=== PATIENT | male | born 1955 | race African-American/Black ===

== ENCOUNTER → 2018-01-01 | Outpatient (CLI) | payer OTHER ==
--- NOTE | 2018-01-01 13:29 | RADIOLOGY REPORT (SQ) ---
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 RADIONUCLIDE AND DOSE: 21.7 millicuries Tc99m MDP. The route of agent administration: Intravenous. ADDITIONAL DRUGS AND DOSES: None. TECHNIQUE: Routine delayed images at 3 hour post radionuclide injection acquired of the bony skeleto n including anterior and posterior whole-body projections and additional focused images as needed. LIMITATIONS: None. FINDINGS: BONES: Subtle focal increased uptake in the inferior sternum to left of midline probably d egenerative costochondral junction uptake. Subtle focal uptake right 9th posterior rib. Symmetric u ptake in multiple joints consistent with degenerative change. KIDNEYS: Symmetric excretion without obstruction. OTHER: No other significant finding. IMPRESSION: Subtle sternal and right rib lesion probably degenerative and posttraumatic, respectivel y. No definite metastasis. COMMENT: Quality measure 147: No available prior imaging studies for comparison TECHNICAL DOCUMENTATION: JOB ID: [id number] [employer]- All Rights Reserved Reading location - IP/workstation name: [email or web address]
== END ==
LOC: RAD 08:18
PROVIDERS: ATTEND Radiology Radiation Oncology
DX: C61 Malignant neoplasm of prostate (principal); C77.5 Secondary and unspecified malignant neoplasm of intrapelvic lymph nodes
CPT/HCPCS: 78306; A9561; Q9969

== ENCOUNTER 2020-02-24 08:01 | Day surgery (SDC) | payer MEDICARE, OTHER ==
[~2020-02-24 08:01] MED LIST: FENTANYL CITRATE INJ/PF 100 MCG/2 ML AMPUL ONE; MIDAZOLAM 2 MG/2 ML INJ ONE; ONDANSETRON HCL INJ/PF 4 MG/2 ML SDV ONE; PROPOFOL INJ 200 MG/20 ML VIAL IV ONE
[2020-02-24] MEDS ORDERED: LIDOCAINE 2%/EPINEPHRINE INJ 1.7 ML CARTRIDGE ONE (08:42)
[2020-02-24] MEDS ORDERED: OXYMETAZOLINE HCL 0.05% NASAL SPRAY 15 ML BOTTLE ONE (08:42)
[2020-02-24] MEDS ORDERED: COCAINE HCL 4% TOPICAL SOLN 4 ML ONE (08:42)
[2020-02-24] MEDS ORDERED: LIDOCAINE 2% INJ-PF (20 MG/ML) 10 ML AMPUL ONE (08:48)
--- NOTE | 2020-02-24 10:01 | Operative Report ---
Operative Report-[facility] Operative Report: Date: 24 February 2020 History: 65-year-old male with a history of eustachian tube dysfunction. Und erwent a BMT T previously. Physical exam revealed that the right PE tube has extruded and was lying on top of the tympanic membrane. The left PE tube was still in place. Patient still having aural fullness and pressure. Surgical options were discussed with the patient. The patient desires removal of the PE tubes and dilation of both eustachian tubes. The patient presents today for evaluation under anesthesia of both ears with removal extruded PE tube on the right side, removal PE tube on the left, myringoplasty on the left and balloon dilation of both eustachian tubes. Informed consent was obtained from the patient. Preoperative Diagnosis: 1. Eustachian tube dysfunction, bilateral 2. Extruded PE tube, right ear 3. Patent PE tube, left ear Postoperative diagnosis: Same as above Procedure: 1. Eustachian tube balloon dilation/reconstruction nasopharynx [CPT = 08450], right 2. Eustachian tube balloon dilation/reconstruction nasopharynx [CPT = 03896], left 3. Rigid nasal endoscopy, bilateral 4. Removal extruded PE tube, right ear 5. Removal PE tube, left ear 6. Myringoplasty, left ear [CPT:42371] Surgeon: Kana Clark MD, FACS, [facility] Anesthesia: GETA Description of procedure: After receiving informed consent from the patient, the patient was transported to the operating room and placed supine on the operating room table. After successful induction and intubation by anesthesia cottonoids saturated with 4% cocaine were placed into both nasal cavities for approximately 5 minutes. They were then removed. Nasal septum and inferior turbinate were injected with 2% Xylocaine with 100,000 epinephrine. The cottonoids were placed back into the nasal cavity. The operating microscope was brought into the field and under binocular microscopy a properly sized ear speculum was placed into the right ear. The tympanic membrane was visualized and the extruded PE tube was removed. The tympanic membrane was intact. Attention was then directed to the left ear, where under binocular microscopy the PE tube was found to be in place and surrounded by granulation tissue. Alligator forceps was used to remove the PE tube. The granulation tissue was grasped with the alligator forceps and displaced into the perforation that resulted from removing the PE tube. The amount of granulation tissue was enough to completely fill the perforation. An epi disc was then placed over this area. Otic drops placed into the external auditory canal. Attention was then directed to the eustachian tube balloon dilation portion of the procedure. The cottonoids were removed from the nasal cavity. A rigid 30 degree nasal endoscope along with the AREA eustachian tube balloon dilation system was inserted in the left nasal cavity. The torus tubarius was visualized. Under endoscopic guidance the balloon was inserted into the left eustachian tube lumen. The balloon was then insufflated to 12 atmospheric pressure for 2 minutes. The balloon was then let down and removed from the eustachian tube lumen. The endoscope and balloon system was then removed from the nasal cavity. A similar procedure was performed on the right side. The patient tolerated the procedure well without any complications. Patient was then given back to anesthesia who successfully extubated the patient without any complications. Estimated blood loss: Minimal Fluids: 500 mL The patient was transferred to the postanesthesia care unit in stable condition with spontaneous respirations.
[2020-02-24] MEDS ORDERED: HYDROCODONE/ACETAMINOPHEN 5-325 MG TABLET ONE (10:05)
== END 2020-02-24 11:07 | disposition home or self-care (01) ==
LOC: SC 08:01
PROVIDERS: ATTEND Otolaryngology
DX: H69.83 Other specified disorders of Eustachian tube, bilateral (principal); H92.12 Otorrhea, left ear; T85.698D Other mechanical complication of other specified internal prosthetic devices, implants and grafts, subsequent encounter; T70.0XXD Otitic barotrauma, subsequent encounter; Z03.818 Encounter for observation for suspected exposure to other biological agents ruled out
CPT/HCPCS: 42950; 69620; U0003; J2250; J3490 ×2; C9046; J3010; A9270 ×2; J2405; J2704; C9803; 87635